=== PATIENT | female | born 1975 | race American Indian/Alaskan Native ===

== ENCOUNTER 2017-10-22 09:49 | Outpatient (CLI) | payer BC ==
--- NOTE | 2017-10-23 08:38 | Ultrasound Report ---
TRANSABDOMINAL AND TRANSVAGINAL PELVIC ULTRASOUND: 10/22/17 09:49:00 CLINICAL: 42 year-old with pelvic pain. FINDINGS: Transabdominal and transvaginal pelvic ultrasound demonstrated a normal uterus with normal size, contour and echogenicity. No uterine mass or fibroid. The uterus measures 8.4 x 4.2 x 4.8 cm. The endometrium is normal and measures 4.9 mm AP thickness. Normal right ovary with small follicles. The right ovary measures 2.2 x 1.3 x 2.1cm. A left ovary is not imaged and is possibly obscured by bowel gas. No adnexal mass. No free fluid. Normal urinary bladder. IMPRESSION: Normal uterus and right ovary. No left ovary identified. Consider additional imaging with CT or MRI.
== END 2017-10-22 09:50 | disposition home or self-care (01) ==
LOC: SPVWC 09:49
PROVIDERS: ATTEND Family Medicine
DX: R10.2 Pelvic and perineal pain (principal)
CPT/HCPCS: 76830; 76856

== ENCOUNTER 2017-11-07 10:45 | Outpatient (CLI) | payer BC ==
[2017-11-07 12:12] LABS: Blood Urea Nitrogen 6 mg/dL (7-17)
--- NOTE | 2017-11-07 13:45 | Cat Scan Report ---
CT ABDOMEN PELVIS WITH AND WITHOUT CONTRAST: HISTORY: Pelvic pain. COMPARISON: none. TECHNIQUE: Helical CT in 1.25mm intervals before and after IV contrast. Sagittal and coronal reconstructions. FINDINGS: Lung bases: Normal. Liver: Normal. Biliary system: Cholecystectomy. No biliary dilatation. Pancreas: Normal. Spleen: Normal. Kidneys/ureters/bladder: Normal. Adrenal glands: Normal. Aorta: Normal. Intestines: Normal. Appendix: Normal. Pelvic viscera: A 2.1 cm left ovarian cyst is identified. The uterus and right ovary are unremarkable. Ascites: None. Adenopathy: None. Musculoskeletal: The bony structures are intact with no evidence of fracture or suspicious bony lesion. There are moderate to large size areas of osteonecrosis involving both femoral heads. No fragmentation or collapse. IMPRESSION: No acute inflammatory process. 2.1 cm left ovarian cyst. Osteonecrosis of both femoral heads. Cholecystectomy.
== END 2017-11-07 10:46 | disposition home or self-care (01) ==
LOC: CT 10:45
PROVIDERS: ATTEND Family Medicine
DX: R10.2 Pelvic and perineal pain (principal); M87.859 Other osteonecrosis, unspecified femur; Z90.49 Acquired absence of other specified parts of digestive tract
CPT/HCPCS: 36415; 74178; 82565; 84520; Q9967